=== PATIENT | male | born 1975 | race Caucasian/White ===

== ENCOUNTER 2019-11-01 17:18 | Observation (INO) ==
[2019-11-01 17:26] VITALS: BP 141/90
[2019-11-01] MEDS ORDERED: ONDANSETRON 4 MG/2 ML VIAL IV STA (18:50)
[2019-11-01] MEDS ORDERED: MORPHINE 4 MG/1 ML VIAL IV STA (18:50)
[2019-11-01] MEDS ORDERED: CLINDAMYCIN INJ 600 MG in PREMIX 1 EACH IV STA (18:50)
[2019-11-01] MEDS ORDERED: SODIUM CHLORIDE 0.9% 1,000 ML IV STA (18:52)
[2019-11-01] MEDS ORDERED: CLINDAMYCIN 600 MG/4 ML VIAL ONE (18:58)
[2019-11-01 19:15] LABS: Basophils # 0.1 10*3/uL (0.0-0.2); Basophils % 0.4 % (0.0-0.8); Eosinophils # 0.2 10*3/uL (0.0-0.87); Eosinophils % 0.9 % (0.00-10.9); Hematocrit 48.7 VOL% (42.0-52.0); Hemoglobin 15.7 GM/DL (14.0-18.0); Immature Granulocytes % 0.6 %; Immature Granulocytes Absolute 0.12 #; Lymphocytes # 3.5 10*3/uL (1.4-4.0); Lymphocytes % 16.4 % (21.2-54.2); Mean Corpuscular HGB Conc 32.2 GM/DL (32-36); Mean Corpuscular Volume 96.6 FL (87-102); Mean Platelet Volume 11.8 FL (9.6-12.0); Monocytes % 6.7 % (1.7-12.7); Platelet Count 215 T/CUMM (130-400); Red Blood Count 5.04 MC/CUMM (3.8-5.5); Red Cell Distribution Width 13.1 % (9.3-17.3); White Blood Count 21.6 T/CUMM (4-12)
[2019-11-01 19:36] LABS: Albumin 3.8 G/DL (3.4-5.0); Bilirubin,Total 0.4 MG/DL (0.2-1.0); Calcium 8.8 MG/DL (8.5-10.1); Eosinophils 1 % (0-10); Lymphocytes 18 % (20-55); Osmolality,Calculated 268.1 MOS/KG (273-304); Platelet Estimate Normal; Segmented Neutrophils 76 % (50-85); Total Cells Counted 100; Total Protein 7.5 G/DL (6.4-8.3)
[2019-11-01] MEDS ORDERED: ONDANSETRON 4 MG/2 ML VIAL IV PRN (22:01)
[2019-11-01] MEDS ORDERED: MORPHINE 4 MG/1 ML VIAL IV PRN (22:01)
[2019-11-01] MEDS ORDERED: PANTOPRAZOLE 40 MG TABLET PO SCH (22:01)
[2019-11-01] MEDS ORDERED: ACETAMINOPHEN 325 MG TABLET PO PRN (22:01)
[2019-11-01] MEDS ORDERED: LACTATED RINGERS 1,000 ML IV SCH (22:30)
[2019-11-01] MEDS ORDERED: VANCOMYCIN INJ 2,000 MG in SODIUM CHLORIDE 0.9% 500 ML IV SCH (23:00)
== END 2019-11-01 22:29 | disposition left against medical advice (07) ==
LOC: N.EDINP 17:18 → N.ED 17:18 → N.3E 20:59
PROVIDERS: ADMIT Surgery; ATTEND Surgery